=== PATIENT | male | born 1975 | race Caucasian/White ===

== ENCOUNTER 2024-12-02 23:37 | Emergency (ER) | payer MEDICAID, SELFPAY ==
--- NOTE | ~2024-12-02 | CT_ITS ---
CLINICAL HISTORY: Sore throat, abnormal anatomy CT soft tissue neck with contrast Comparison: None provided Findings: The visualized intracranial contents are unremarkable. No prevertebral fluid. Epiglottis is within normal limits. Pharyngeal mucosal space and parapharyngeal fat are normal. Salivary glands are within normal limits. No sialoliths. Bowie tonsils are normal. Thyroid gland is unremarkable. Question circumferential wall thickening of the upper esophagus. No prevertebral fluid or thickening. No consolidation at the lung apices. No acute fracture or dislocation. Patient is edentulous. IMPRESSION: Possible circumferential wall thickening of the upper esophagus which could indicate esophagitis. This document has been electronically signed by: Davy Andrea MD on 12/03/2024 01:19:55
[2024-12-02 23:40] VITALS: BP 146/85; PULSE 93; RESP 16; TEMP 37; O2SAT 96; BMI 21.2
--- NOTE | 2024-12-03 00:07 | PC.NURSE ---
IV established, labs and swab obtained. Plan for CT.
--- OUTSIDE RECORDS SUMMARY | 2024-12-03 00:07 | XMS_ITS | Clinical Summary ---
Author Organization [employer] Address [address] [place] [address] Care Team Providers Care Fire Inspector Name Role Phone Unavailable Primary Care Provider Unavailabl e Social History Tobacco Use Types Packs/Day Years Used Date Smoking Tobacco: Never Assessed Sex and Gender Information Value Date Recorded Sex Assigned at Not on file Legal Sex Male 1:37 PM EST Gender Identity Not on file Sexual Orientation Not on file Plan of Treatment Health Maintenance Due Date Last Done Comments CT Colonography 1976 Colonoscopy 1976 Colorectal Cancer Screening 1976 Depression Screening 1976 FIT DNA/Cologuard 1976 FIT 1976 FOBT 1976 HIV Screening 1976 Lipid Panel 1976 SDOH Screening 1976 Sigmoidoscopy 1976 Disability Screening 1976 Alcohol/Substance Use Screening 1988 Tobacco Screening 1988 Family Planning (PISQ) 1991 Hepatitis C Screening 1994 DTaP/Tdap/Td Vaccines (1 - Tdap) 1995 Hepatitis B Vaccines (1 of 3 - 19+ 3-dose series) 1995 COVID-19 Vaccine ( - 2023-2 5 season) 2024 Influenza Vaccine (Season Ended) 2025 Zoster Vaccines (1 of 2) 2026 RSV Patients and Pa tients Aged 60 years or older (1 - 1-dose 75+ series) 2051 HIB Vaccines Aged Out No longer eligi ble based on patient's age to complete this topic HPV Vaccines Aged Out No longer eligi ble based on patient's age to complete this topic Hepatitis A Vaccines Aged Out No long er eligible based on patient's age to complete this topic IPV Vaccines Aged Out No longer eligi ble based on patient's age to complete this topic Meningococcal B Vaccine Aged Out No l onger eligible based on patient's age to complete this topic Meningococcal Vaccine Aged Out No ok giorgio eligible based on patient's age to complete this topic Pneumococcal Vaccine: Pediat rics (0 to 5 Years) and At-Risk Patients (6 to 49) Years Aged Out No longer eligible b ased on patient's age to complete this topic RSV under 20 months Aged Out No longe r eligible based on patient's age to complete this topic Rotavirus Vaccines Aged Out No longer eligible based on patient's age to complete this topic
[2024-12-03 00:12] LABS: MANUAL DIFF FLAG NO
[2024-12-03 00:13] LABS: Hematocrit 36.6 % (42.0-52.0); Hemoglobin 12.4 g/dl (14.0-18.0); Imm Gran Abs Auto 0.01 X10*3/uL (0.00-0.03); Imm Gran Pct Auto 0.2 % (0.0-0.4); Lymphocytes Absolute Auto 1.2 X10*3/uL (1.2-4.9); Mean Corpuscular HGB Conc 33.9 g/dl (31.0-36.0); Mean Corpuscular Hemoglobin 27.3 pg (27.0-33.0); Mean Corpuscular Volume 80.4 fL (80.0-98.0); NRBC Abs Auto 0.000 X10*3/uL (0.0-0.012); NRBC Pct Auto 0.0 /100WBC (0.0-0.2); Platelet Count 261 X10*3/uL (160-400); Red Blood Count 4.55 X10*6/uL (4.60-5.80); White Blood Count 6.7 X10*3/uL (4.8-10.8)
[2024-12-03 00:26] LABS: Alanine Aminotransferase 21 U/L (0-40); Albumin Level 4.7 g/dL (3.5-5.0); Alkaline Phosphatase 99 U/L (39-117); Anion Gap 13 (12-20); Aspartate Amino Transferase 34 U/L (5-37); Blood Urea Nitrogen 17 mg/dL (9-16); Calcium 9.4 mg/dL (8.4-10.2); Carbon Dioxide 27 mmol/L (22-29); Chloride 107 mmol/L (96-108); Creatinine Clr Calc Pharmacy 105.0; Estimated Glomerular Filt Rate > 60; Potassium 4.3 mmol/L (3.3-5.1); Sodium 143 mmol/L (135-145); Total Protein 8.2 g/dL (6.5-8.0)
[2024-12-03 00:43] LABS: Resp Syncy Virus RNA Qual PCR NEGATIVE (Negative); SARS COV2 PCR INHOUSE NEGATIVE (Negative)
--- NOTE | 2024-12-03 00:47 | PC.NURSE ---
Pt returns from CT at this time.
[2024-12-03] MEDS: iohexoL 350 MG/ML 100 ML INFUS..BTL 60 ML IV (00:48)
[2024-12-03 01:49] LABS: IDNOW Serial# 55D5AD1C; Strep A Nucleic Acid Negative (Negative)
[2024-12-03] MEDS: Magnesium Hydrox/Alum Hydrox 30 ML ORAL.SUSP PO (01:56)
[2024-12-03] MEDS: Lidocaine HCl Viscous 2 % 15 ML SOLUTION MUCOUS MEM (01:56)
--- NOTE | 2024-12-03 01:57 | PC.NURSE ---
Medicated per JUL. Pt aware of plan for DC.
--- NOTE | 2024-12-03 02:13 | ED.GENADULT ---
HPI - General Adult General Chief complaint: Dental/Oral Stated complaint: sore throat Time Seen by Provider: 12/03/24 01:03 Source: patient Limitations: no limitations History of Present Illness ED Provider: Norma Trejo PA-C HPI narrative: 49-year-old male presents with pharyngitis x3 days. Associated odynophagia. Denies concurrent cough or cold symptoms or fever. Related Data Previous Rx's ?Medication ?Instructions ?Recorded sucralfate 100 mg/mL oral 10 ml PO QID PRN esophagitis #400 12/03/24 suspension (Carafate) mL Allergies Allergy/AdvReac Type Severity Reaction Status Date / Time No Known Allergies Allergy Verified 12/02/24 23:50 Review of Systems Review of Systems: Yes all other systems are reviewed and are negative Constitutional: Constitutional: Denies fatigue and Denies fever(s) ENT: Denies nasal congestion, Denies nasal discharge, Reports odynophagia, Denies post nasal drip, Reports sore throat and Denies throat swelling Gastrointestinal: Gastrointestinal: Reports odynophagia Endocrine: Endocrine: Denies fatigue Allergic/Immunologic: Allergic/Immunologic: Denies throat swelling [facility] Past Medical History Attestation statement: The following information was validated with the patient. Physical Exam ED Vital Signs: Vital Signs - 24 hr 12/02/24 23:40 Temperature 98.6 F Pulse Rate 93 Respiratory Rate 16 Blood Pressure 146/85 H Pulse Oximetry 96 Oxygen Delivery Method Room Air BMI result Body Mass Index 21.2 Const Other: Alert cachectic, appears older than stated age Orientation/consciousness: patient oriented x3 HENMT Other: Entire oropharynx is erythematous, tonsils not prominent, uvula midline, very prominent epiglottis can be visualized without instrumentation no trismus no drooling no sublingual fluctuance no swelling inferior to the jawline Neck Other: No anterior cervical lymphadenopathy Resp Effort & Inspection: normal respiratory effort Cardio Other: Normal peripheral perfusion Skin Other: Warm dry no rash Neuro General: patient oriented x3, gait normal, no focal motor deficits and CN's II-XI intact bilaterally Psych Other: Cooperative Medications Administered Discontinued Medications Generic Name Dose Route Start Last Admin Trade Name Freq PRN Reason Stop Dose Admin Al Hydroxide/Mg Hydroxide 30 ml 12/03/24 01:35 12/03/24 01:56 Magnesium Hydrox/Alum Hydrox 30 Ml Oral.Susp PO 12/03/24 01:36 30 ml ONCE ONE Administration Iohexol 60 ml 12/03/24 00:48 12/03/24 00:48 Iohexol 350 Mg/Ml 100 Ml Infus..Btl IV 12/03/24 00:49 60 ml ONCE ONE Administration Lidocaine HCl 15 ml 12/03/24 01:35 12/03/24 01:56 Lidocaine Hcl Viscous 2 % 15 Ml Solution MUCOUS MEM 12/03/24 01:36 15 ml ONCE ONE Administration Medical Decision Making Medical Decision Making MDM Narrative: 49-year-old male presents with pharyngitis x3 days. Associated odynophagia. Denies concurrent cough or cold symptoms or fever. No known chronic issues History: Per patient I have considered the following differential diagnoses: RPA, EXERCISE PHYSIOLOGY PROFESSOR, strep pharyngitis, viral syndrome, epiglottitic mass?? Plan: We will be screening a viral panel and strep screen. The patient does not have an exam consistent with a RPA or EXERCISE PHYSIOLOGY PROFESSOR. His epiglottis is quite prominent, airing on the side of caution I am obtaining a CT scan of the neck. Giving GI cocktail for a sore throat I have independently reviewed the following tests: Labs: No leukocytosis, not anemic, no electrolyte abnormality, viral panel negative, strep screen negative CT neck:IMPRESSION: Possible circumferential wall thickening of the upper esophagus which could indicate esophagitis. Lab Data 12/03/24 00:08 12/03/24 00:08 Labs: Lab Results 12/02/24 12/03/24 12/03/24 Range/Units 23:57 00:08 01:22 WBC 6.7 (4.8-10.8) X10*3/uL RBC 4.55 L (4.60-5.80) X10*6/uL Hgb 12.4 L (14.0-18.0) g/dl Hct 36.6 L (42.0-52.0) % MCV 80.4 (80.0-98.0) fL MCH 27.3 (27.0-33.0) pg MCHC 33.9 (31.0-36.0) g/dl RDW 13.8 (11.0-16.0) % Plt Count 261 (160-400) X10*3/uL MPV 8.8 L (9.4-12.4) fL Immature Gran % (Auto) 0.2 (0.0-0.4) % Neut % (Auto) 69.3 (45-73) % Lymph % (Auto) 18.2 L (20-40) % Saline % (Auto) 9.2 (2-11) % Eos % (Auto) 2.9 (0-4) % Baso % (Auto) 0.2 (0-2) % Lymph # (Auto) 1.2 (1.2-4.9) X10*3/uL Saline # (Auto) 0.6 (0.1-1.2) X10*3/uL Eos # (Auto) 0.2 (0.0-0.4) X10*3/uL Baso # (Auto) 0.0 (0.0-0.2) X10*3/uL Abs Immat Gran (auto) 0.01 (0.00-0.03) X10*3/uL Absolute Neuts (auto) 4.6 (2.0-8.3) x10*3/uL Absolute Nucleated RBC 0.000 (0.0-0.012) X10*3/uL Nucleated RBC % (auto) 0.0 (0.0-0.2) /100WBC Sodium 143 (135-145) mmol/L Potassium 4.3 (3.3-5.1) mmol/L Chloride 107 (96-108) mmol/L Carbon Dioxide 27 (22-29) mmol/L Anion Gap 13 (12-20) BUN 17 H (9-16) mg/dL Creatinine 0.91 (0.5-1.4) mg/dL Estim Creat Clear Calc 105.0 Estimated GFR > 60 Random Glucose 86 (60-115) mg/dL Calcium 9.4 (8.4-10.2) mg/dL Total Bilirubin 0.3 (0.0-1.0) mg/dL AST 34 (5-37) U/L ALT 21 (0-40) U/L Alkaline Phosphatase 99 (39-117) U/L Total Protein 8.2 H (6.5-8.0) g/dL Albumin 4.7 (3.5-5.0) g/dL Influenza Type A (PCR) NEGATIVE (Negative) Influenza Type B (PCR) NEGATIVE (Negative) RSV RNA Qual (PCR) NEGATIVE (Negative) SARS-CoV-2 RNA (RT-PCR) NEGATIVE (Negative) S. pyogenes GrpA ROCIO Negative (Negative) Discharge Plan Discharge Clinical Impression: Esophagitis, GERD (gastroesophageal reflux disease) Patient Disposition: Home, Self-Care Instructions: Diet for Stomach Ulcers and Gastritis (ED), GERD (Gastroesophageal Reflux Disease) (ED), Esophagitis (ED) Additional Instructions: All of your screening labs were normal, you do not have strep throat, the viral panel was negative as well. The CT scan reveals concern for esophagitis. You need to follow up with primary care to be referred to a breakfast manager for endoscopy. Call tomorrow to schedule an appointment. In the meantime, see home care instructions to help to minimize your symptoms. Use the Carafate as needed for your discomfort. Prescriptions: New sucralfate [Carafate] 100 mg/mL suspension 10 ml PO QID PRN (Reason: esophagitis ) Qty: 400 0RF Rx Instructions: swish in mouth and swallow; use after food/drink Interventions: ED Discharge Assessment Last Done: 12/03/24 02:23 Discharge Date/Time: 12/03/24 02:49 Print Language: Citizen Of [place]
--- NOTE | 2024-12-03 02:14 | PC.NURSE ---
NADEEM at bedside discussing all results and plan for f/u and discharge.
[2024-12-03 02:23] VITALS: BP 142/78; PULSE 90; RESP 16; TEMP 36.8; O2SAT 96
== END 2024-12-03 02:49 | disposition home or self-care (01) ==
PROVIDERS: Physician Assistant Medical; Emergency Provider Emergency Medicine
DX: J02.9 Acute pharyngitis, unspecified (principal); K20.90 Esophagitis, unspecified without bleeding; K21.9 Gastro-esophageal reflux disease without esophagitis; Z03.818 Encounter for observation for suspected exposure to other biological agents ruled out; Z79.899 Other long term (current) drug therapy
CPT/HCPCS: 36415; 70491; 80053; 85025; 87637; 87651; 99283; 99284; Q9967

== ENCOUNTER → 2024-12-03 00:01 | Outpatient (BNV) | payer MEDICAID, SELFPAY | PROVIDERS: Emergency Provider Emergency Medicine; Visit Provider Radiology Diagnostic Radiology | DX: J02.9 Acute pharyngitis, unspecified (principal); M95.3 Acquired deformity of neck | CPT/HCPCS: 70491 ==